=== PATIENT | male | born 1990 | race Caucasian/White ===

== ENCOUNTER 2020-03-15 17:34 | Emergency (ER) | payer MEDICAID, OTHER ==
--- NOTE | 2020-03-15 18:02 | EDM.PDOC ---
ED HPI GENERAL MEDICAL PROBLEM - General Stated Complaint: HIGH BLOOD PRESSURE,LEFT ARM PAIN Time Seen by Provider: 03/15/20 17:35 Source of Information: Reports: Patient History Limitations: Reports: No Limitations - History of Present Illness INITIAL COMMENTS - FREE TEXT/NARRATIVE: pt is here with concerns for elevated blood pressure at home, states it was 240 over 128. report Hx of having elevated BP but nothing this high and denies ever being treated for it, pt denies chest pain SOB, or any other associated sx but report noticing some discomfort over left forearm over the past 2 days and shack ing of his hands, pt denies any alcohol regular use or any drug use or any Hx of significant morbidities. he is a one pack a day of cigarettes smoker. - Related Data Allergies Allergy/AdvReac Type Severity Reaction Status Date / Time No Known Allergies Allergy Verified 03/02/14 22:25 Home Meds: Home Meds NK [No Known Home Meds] 03/02/14 [History] Past Medical History - Past Health History Medical/Surgical History: Denies Medical/Surgical History Social & Family History - Living Situation & Occupation Living situation: Reports: Single ED ROS GENERAL - Review of Systems Review Of Systems: See Below Constitutional: Reports: No Symptoms HEENT: Reports: No Symptoms Respiratory: Reports: No Symptoms Cardiovascular: Reports: No Symptoms GI/Abdominal: Reports: No Symptoms Skin: Reports: No Symptoms Neurological: Reports: No Symptoms ED EXAM, GENERAL - Physical Exam Exam: See Below Exam Limited By: No Limitations General Appearance: Alert, No Apparent Distress Ears: Normal External Exam Nose: Normal Inspection, Normal Mucosa Throat/Mouth: Normal Inspection Head: Atraumatic, Normocephalic Neck: Normal Inspection, Supple, Non-Tender Respiratory/Chest: No Respiratory Distress, Lungs Clear Cardiovascular: Normal Peripheral Pulses, Regular Rate, Rhythm GI/Abdominal: Normal Bowel Sounds, Soft, Non-Tender Back Exam: Normal Inspection, Full Range of Motion Extremities: Normal Inspection, Normal Range of Motion Neurological: Alert, Oriented, CN II-XII Intact Psychiatric: Normal Affect Skin Exam: Warm Course - Vital Signs Text/Narrative:: EKG shows NSR , labs unremarkable , BP after metoprolol is 153/103 . pt is stable for out patient mng , recommended starting metoprolol and f/u with PCP in 1 week. Last Recorded V/S: Last Vital Signs Temp 36.3 C 03/15/20 17:44 Pulse 85 03/15/20 18:14 Resp 14 03/15/20 17:44 BP 164/102 H 03/15/20 18:14 Pulse Ox 100 03/15/20 17:44 - Orders/Labs/Meds Orders: Active Orders 24 hr Category Date Time Status EKG Documentation Completion [RC] ASDIRECTED Care 03/15/20 18:05 Active EKG 12 Lead [EK] Routine Ther 03/15/20 18:04 Ordered Labs: Laboratory Tests 03/15/20 03/15/20 Range/Units 18:15 18:15 WBC 9.8 (4.5-12.0) X10-3/uL RBC 5.39 (4.30-5.75) x10(6)uL Hgb 15.9 (13.5-17.8) g/dL Hct 46.1 (30.0-51.3) % MCV 85.7 (80-96) fL MCH 29.4 (27.7-33.6) pg MCHC 34.4 (32.2-35.4) g/dL RDW 11.9 (11.5-15.5) % Plt Count 273 (125-369) X10(3)uL MPV 8.4 (7.4-10.4) fL Neut % (Auto) 63.2 (46-82) % Lymph % (Auto) 31.4 (13-37) % Cedar % (Auto) 3.4 L (4-12) % Eos % (Auto) 1 (1.0-5.0) % Baso % (Auto) 1 (0-2) % Neut # (Auto) 6.2 (1.6-8.3) # Lymph # (Auto) 3.1 (0.6-5.0) # Cedar # (Auto) 0.3 (0.0-1.3) # Eos # (Auto) 0.1 (0.0-0.8) # Baso # (Auto) 0.1 (0.0-0.2) # Sodium 142 (135-145) mmol/L Potassium 3.7 (3.5-5.3) mmol/L Chloride 102 (100-110) mmol/L Carbon Dioxide 29 (21-32) mmol/L BUN 9 (7-18) mg/dL Creatinine 0.9 (0.70-1.30) mg/dL Est Cr Clr Drug Dosing 126.17 mL/min Estimated GFR (MDRD) > 60 (>60) BUN/Creatinine Ratio 10.0 (9-20) Glucose 93 (80-116) mg/dL Calcium 9.2 (8.6-10.2) mg/dL Total Bilirubin 0.6 (0.1-1.3) mg/dL AST 15 (5-25) IU/L ALT 45 H (12-36) U/L Alkaline Phosphatase 47 L (56-112) IU/L Total Protein 7.8 (6.0-8.0) g/dL Albumin 4.3 (3.5-5.2) g/dL Globulin 3.5 g/dL Albumin/Globulin Ratio 1.2 Meds: Medications Discontinued Medications Generic Name Dose Route Start Last Admin Trade Name Freq PRN Reason Stop Dose Admin Metoprolol Succinate 50 mg 03/15/20 18:05 03/15/20 18:14 Toprol Xl PO 03/15/20 18:06 50 mg ONETIME ONE Administration Departure - Departure Time of Disposition: 19:10 Disposition: Home, Self-Care 01 Clinical Impression: Hypertension - Discharge Information Referrals: Noe Downing MD [Primary Care Provider] - Sepsis Event Note (ED) - Evaluation Sepsis Screening Result: No Definite Risk - Focused Exam Vital Signs: Vital Signs Temp Pulse Pulse Resp BP BP Pulse Ox 03/15/20 18:14 85 164/102 H 03/15/20 17:44 36.3 C 85 14 164/102 H 100 - My Orders Last 24 Hours: My Active Orders 03/15/20 18:04 EKG 12 Lead [EK] Routine 03/15/20 18:05 EKG Documentation Completion [RC] ASDIRECTED - Assessment/Plan Last 24 Hours: My Active Orders 03/15/20 18:04 EKG 12 Lead [EK] Routine 03/15/20 18:05 EKG Documentation Completion [RC] ASDIRECTED
[2020-03-15] MEDS ORDERED: Metoprolol Succinate 50 MG Tab.ER PO ONE (18:05)
[2020-03-15 19:58] VITALS: BP 140/96; PULSE 71
== END 2020-03-15 19:24 | disposition home or self-care (01) ==
LOC: FB.ED 17:34
DX: I10 Essential (primary) hypertension (principal)
CPT/HCPCS: 36415; 80053; 85025; 93005; 99283; A9270